=== PATIENT | male | born 1940 | race Caucasian/White ===

== ENCOUNTER 2022-06-23 14:53 | Emergency (ER) | payer MEDICARE, OTHER ==
[~2022-06-23] VITALS: Ht 172.7 cm; Wt 93.1 kg
[~2022-06-23 14:53] MED LIST: AMLO-489 OR; ASPIRIN; EZET10TA24 OR; HYDR25TA4 OR; LEVO75TA6 OR; LORAPOW30 PO; LOSA25TA38 OR; MONT10TA23 OR; PRO AIR HFA; [UNRECOGNIZED DRUG - OTHER]
[2022-06-23 16:20] LABS: Hemoglobin 10.3 g/dL (13.5-17.5)
[2022-06-23 16:22] LABS: Hematocrit 31.9 % (41.0-53.0); Mean Corpuscular Hemoglobin 30.1 pg (28.0-32.0); Mean Corpuscular Hgb Conc. 32.4 g/dL (32.0-36.0); Mean Corpuscular Volume 92.9 fL (80.0-100.0); Red Blood Cells 3.43 10^6/uL (4.5-5.90); Red Cell Distribution Width 15.4 % (11.8-14.3)
[2022-06-23 16:33] LABS: Albumin 2.6 g/dL (3.4-5.0); Calcium 8.6 mg/dL (8.5-10.1); Magnesium 2.2 mg/dL (1.6-2.6); Potassium 3.9 mmol/L (3.5-5.1)
[2022-06-23 16:36] LABS: BUN/Creatinine Ratio 24.7; Bilirubin, Total 0.9 mg/dL (0.2-1.0); Total Protein 5.6 g/dL (6.4-8.2); White Blood Cell 37.9 10^3/uL (4.4-10.8)
[2022-06-23 16:37] LABS: Basophils % (manual) 0 (0.0-2.0); Blast Cells 0; Eosinophils % (manual) 0 (0-7); Metamyelocytes % 0; Myelocytes % 0; Promyelocytes % 0; Reactive Lymphocytes 0
[2022-06-23 17:02] LABS: Band Neutrophils % (manual) 12; Lymphocytes % (manual) 2 (10.0-50.0); Monocytes % (manual) 2 (0-12)
[2022-06-23] MEDS: FUROSEMIDE 40 MG/4 ML VIAL IV ONE ×2 (18:25→22:10)
[2022-06-23] MEDS ORDERED: DABIGATRAN 75 MG CAP PO SCH (22:00)
[2022-06-23 22:58] VITALS: BP 146/64
== END 2022-06-23 19:27 | disposition short-term general hospital (02) ==
LOC: ER 14:53 → EDBD 14:53 → ER 19:27
DX: R06.02 Shortness of breath (principal); D72.829 Elevated white blood cell count, unspecified; I11.0 Hypertensive heart disease with heart failure; I50.9 Heart failure, unspecified; J44.9 Chronic obstructive pulmonary disease, unspecified; E78.5 Hyperlipidemia, unspecified; Z90.49 Acquired absence of other specified parts of digestive tract; Z20.822 Contact with and (suspected) exposure to COVID-19; Z87.891 Personal history of nicotine dependence
CPT/HCPCS: 36415; 71045; 80053; 83605; 83735; 83880; 84484; 85007; 85027; 87040; 87426; 93005; 96374; 99285; J1940

== ENCOUNTER 2023-01-18 17:26 | Emergency (ER) | payer OTHER ==
[~2023-01-18] VITALS: Ht 167.6 cm; Wt 90.0 kg
[~2023-01-18 17:26] MED LIST changes: -AMLO-489 OR; +AMLO1TAB22 OR; +LOSA25TA15 OR; -LOSA25TA38 OR
[2023-01-18 19:12] LABS: Basophils # (auto) 0.1 10 ^3/uL (0-0.2); Basophils % (auto) 0.7 % (0.0-2.0); Eosinophils # (auto) 0 10 ^3/uL (0-0.8); Eosinophils % (auto) 0.2 % (0.0-7.0); Hemoglobin 10.5 g/dL (13.5-17.5); Lymphocytes # (auto) 1.6 10 ^3/uL (0.4-5.4); Lymphocytes % (auto) 9.2 % (10.0-50.0); Mean Corpuscular Volume 93.9 fL (80.0-100.0); Monocytes # (auto) 1.4 10 ^3/uL (0-1.3); Monocytes % (auto) 8.1 % (0.0-12.0); Neutrophils # (auto) 14.2 10 ^3/uL (1.6-8.6); Neutrophils % (auto) 81.8 % (37.0-80.0); Nucleated Red Blood Cells % 0.1 %; Red Cell Distribution Width 16.3 % (11.8-14.3); White Blood Cell 17.4 10^3/uL (4.4-10.8)
[2023-01-18] MEDS ORDERED: SODIUM CHLORIDE 0.9% 1,000 ML IV ONE (19:15)
[2023-01-18 19:36] LABS: INR 1.36 (0.9-1.15); Partial Thromboplastin Time 57.1 SEC (24.5-34.5)
[2023-01-18 19:41] LABS: Alanine Aminotransferase 17 U/L (7-40); Albumin 3.5 g/dL (3.2-4.8); Alkaline Phosphatase 76 U/L (46-116); Anion Gap 6.4 (5-15); Aspartate Aminotransferase 19 U/L (13-40); BUN/Creatinine Ratio 15.5 (10.0-20.0); Blood Urea Nitrogen 17 mg/dL (9-23); Calcium 8.8 mg/dL (8.7-10.4); Carbon Dioxide 26.6 mmol/L (20-30); Chloride 107 mmol/L (98-107); Glucose 101 mg/dL (74-106); Potassium 3.8 mmol/L (3.5-5.1); Sodium 140 mmol/L (136-145)
[2023-01-18 19:42] LABS: Bilirubin, Total 0.9 mg/dL (0.2-1.0); Total Protein 5.7 g/dL (5.7-8.2)
[2023-01-18] MEDS ORDERED: IPRATROPIUM BROM 0.5 MG/2.5ML INH SOL NEB ONE (20:15)
[2023-01-18] MEDS ORDERED: cefTRIAXone 1GM/50ML D5W 50 ML IV ONE (20:15)
[2023-01-18] MEDS ORDERED: ALBUTEROL SULF 2.5 MG/0.5ML(0.5%) NEB SOLN NEB ONE (20:15)
[2023-01-18 23:08] LABS: COVID19 ANTIGEN SOFIA FIA NEGATIVE (NEGATIVE)
[2023-01-18 23:30] VITALS: PULSE 72; RESP 20; O2SAT 91
[2023-01-19 00:40] VITALS: BP 110/61; PULSE 81; RESP 20; TEMP 98.9; O2SAT 92
== END 2023-01-19 02:51 | disposition short-term general hospital (02) ==
LOC: ER 17:26 → EDUNIT# 17:26 → EDBD 17:26 → ER 01-19 02:51
DX: J44.1 Chronic obstructive pulmonary disease with (acute) exacerbation (principal); J18.1 Lobar pneumonia, unspecified organism; D64.9 Anemia, unspecified; I11.0 Hypertensive heart disease with heart failure; I50.9 Heart failure, unspecified; I25.2 Old myocardial infarction; I48.91 Unspecified atrial fibrillation; E03.9 Hypothyroidism, unspecified; K21.9 Gastro-esophageal reflux disease without esophagitis; E78.5 Hyperlipidemia, unspecified; Z95.1 Presence of aortocoronary bypass graft; Z90.49 Acquired absence of other specified parts of digestive tract; Z90.89 Acquired absence of other organs; Z87.891 Personal history of nicotine dependence; Z20.822 Contact with and (suspected) exposure to COVID-19
CPT/HCPCS: 36415; 71045; 80053; 83735; 83880; 84443; 84484; 85025; 85379; 85610; 85730; 87040; 87426; 93005; 93971; 94640; 96365; 99285; J0696; J7644; 96361